=== PATIENT | male | born 1990 ===

== ENCOUNTER 2018-08-10 13:44 | Outpatient (CLI) | payer OTHER ==
[~2018-08-10] VITALS: Ht 188 cm; Wt 81.6 kg
== END 2018-08-10 14:00 | disposition home or self-care (01) ==
LOC: OFIC 805 13:44
DX: H93.13 Tinnitus, bilateral (principal); H93.90 Unspecified disorder of ear, unspecified ear; R42 Dizziness and giddiness; H53.8 Other visual disturbances